=== PATIENT | female | born 1935 | race Caucasian/White ===

== ENCOUNTER 2016-06-13 22:40 | Inpatient (IN) | payer OTHER ==
--- NOTE | ~2016-06-13 | HP ---
History And Physical [facility] [address] [place]. [address] NAME: SAMAN NOLASCO : 35 STATUS : ADM Crow PAT#: [id number] AGE: 80 ADM/REG DATE : 06/13/16 MR#: [id number] REPORT SERV DATE: 06/14/16 DICTATED BY: TIM MUSTAFA DATE: 06/14/16 REPORT STATUS : Draft TRANSCRIBED BY: MODRoxane DATE: 06/14/16 DATE OF ADMISSION: 06/13/2016 CHIEF COMPLAINT: Fall at home, hip pain, and bleeding from the scalp. 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 History is obtained from the patient, her family who is at bedside, and reviewing data available on the apprupt system. Ms. Nolasco is an 80-year-old very pleasant lady, who was in her usual state of health at home when she got up from the couch to go to another room and unfortunately sustained a fall. She says there was no specific reason for the fall, but when she went down, she hit her head against the fireplace and sustained a gash in her scalp. This was bleeding. Unfortunately after the fall, she started experiencing sudden onset of pain in her hip region, although she cannot localize it, but was unable to stand up or bear weight with either of her legs. She scooted around trying to find a phone and was finally able to call one of her family members, her daughter, who came over and then got help and subsequently, the patient was brought here to the emergency room. In the emergency room, she had a scalp laceration which was addressed by the ER providers with megan, and initial workup revealed she had a fracture of the pelvis. She also was hypotensive with blood systolic blood pressures in the low 90s, but was quite asymptomatic here. Hospitalist Service is asked to admit her for further evaluation and treatment. At the time of my evaluation, she denied any chest pain, palpitations, or orthopnea. She had no cough recently. Denied any hemoptysis, night sweats, or weight loss. She did have a fall as mentioned above, but without any loss of consciousness. No history of recent fevers, chills, nausea, vomiting, diarrhea, hematemesis, hematochezia, or hematuria. No other history of recent travel or exposures other than those mentioned above. 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 She has had hysterectomy and breast and hip surgeries in the past as well. SOCIAL HISTORY: She does not smoke, drink, or use recreational drugs. FAMILY HISTORY: Noncontributory. MEDICATIONS: Her medications at home were reviewed by me in the chart today and reordered by me. REVIEW OF SYSTEMS: As in history of present illness. All other systems were reviewed in detail and are quite unremarkable. History And Physical [address] [place]. [address] NAME: SAMAN NOLASCO : 35 STATUS : ADM Crow PAT#: [id number] AGE: 80 ADM/REG DATE : 06/13/16 MR#: [id number] REPORT SERV DATE: 06/14/16 DICTATED BY: TIM MUSTAFA DATE: 06/14/16 REPORT STATUS : Draft TRANSCRIBED BY: ERNIE DATE: 06/14/16 PHYSICAL EXAMINATION: GENERAL: This is a pleasant 80-year-old, not in any acute distress. HEENT: Her head is atraumatic, normocephalic. She is alert, awake, oriented to time, place, and person. Pupils are equal, reacting to light and accommodating. External ocular muscles are intact. Membranes are moist and pink. Sclerae are nonicteric. NECK: Supple with no jugular venous distention, lymphadenopathy, or thyromegaly. SKIN: Jaundiced. LUNGS: Clear to auscultation with no wheezes, rubs, or crackles. HEART: Heart sounds were regular with no murmurs, rubs, or gallops. ABDOMEN: Soft, nontender. Bowel sounds are present. EXTREMITIES: Showed no cyanosis, clubbing, or edema. NEUROLOGIC: Grossly intact. No focal sensory or motor deficits. There was no asterixis. VITAL SIGNS: Today showed a temperature of 98.2, pulse 63, respirations 21 a minute, blood pressure was 95/51 upon arrival. Oxygen saturations were 93% on room air. LABORATORY DATA: Reviewed on the apprupt system showed a sodium of 144, potassium was 3.2, chloride 106, and CO2 was 27. BUN was 8 with a creatinine of 0.81 and blood sugar was 120. Total bilirubin today was 2.7, which has been better than in the past. Her alkaline phosphatase was 164. Her ALT and AST were within normal limits. Ammonia was 12 today and CBC showed a white blood cell count of 6800, hemoglobin was 11.9, hematocrit 35.1. Her MCV was 98.9 and platelet count was down to 84,000. Urinalysis was not done today. Films of the CT scan of the brain and plain x-ray of the hip and pelvis were all reviewed by me on the PACS today. The CT of the brain did not reveal any acute intracranial pathology. Hip film showed acute fracture of the pelvis. IMPRESSION: 1. Fall. 2. Pelvic fracture. 3. Scalp laceration. 4. Hypotension. 5. Thrombocytopenia. 6. Gastroesophageal reflux disease. 7. Cryptogenic cirrhosis of the liver with varices, stable at this time. PLAN: We will admit Mrs. Nolasco to the Hospitalist Service with telemetry for a 24-hour observation period. We will start her on IV fluids for volume resuscitation and follow closely. We will get a random cortisol level now, and also get blood and urine cultures as well. Her scalp laceration was addressed in the emergency room by the ER provider with megan. We will get Social Work to evaluate her for rehabilitation placement. We will continue all other medications and treatments at this time, provide pain control for the hip fracture as well. She will be on SCDs for DVT prophylaxis given her thrombocytopenia. Please see today's orders for all the details. I have discussed the above plans with the patient and her family. Questions were answered and they are agreeable to the above recommendations. Hospitalist Service will be following her during her stay here. History And Physical [address] [place]. [address] NAME: SAMAN NOLASCO : 35 STATUS : ADM Crow PAT#: [id number] AGE: 80 ADM/REG DATE : 06/13/16 MR#: [id number] REPORT SERV DATE: 06/14/16 DICTATED BY: TIM MUSTAFA DATE: 06/14/16 REPORT STATUS : Draft TRANSCRIBED BY: MODRoxane DATE: 06/14/16 MR/MODL Tim Mustafa M.D. / [id number] CC: Israel Agarwal M.D.
--- NOTE | ~2016-06-13 | DS ---
Discharge Summary [facility] [address] [place]. [address] NAME: SAMAN BOND : 35 STATUS : DIS Crow PAT#: [id number] AGE: 80 ADM/REG DATE : 06/13/16 MR#: [id number] REPORT SERV DATE: 06/20/16 DICTATED BY: PIYUSH DO DATE: 06/19/16 REPORT STATUS : Draft TRANSCRIBED BY: MODRoxane DATE: 06/19/16 ADMISSION DATE: 06/13/2016 DISCHARGE DATE: 06/19/2016 DISCHARGE DIAGNOSES: 1. Acute pelvic fractures due to fall. 2. Cryptogenic cirrhosis with history of ascites, encephalopathy, esophageal varices, prolonged INR, thrombocytopenia with a MELD score of 15. 3. Low vitamin D. 4. Gastroesophageal reflux disease. 5. Mild systolic congestive heart failure. HISTORY: The patient tripped, fell. No loss of consciousness. Had pain in her left pelvis, could not get up, crawled to where the phone was, got help, was brought to the emergency room. X-ray showed fracture of the superior and inferior pubic rami on the left side. No evidence of hip fracture. 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 Because of the pain, she was not able to bear weight independently. She was in observation status, seen by Physical Therapy and recommended for rehab. She has a history of cryptogenic cirrhosis. She had a liver biopsy at [place]. Family thinks she may have had fatty liver. She is followed longitudinally by GI, Dr. Cash Mendenhall. She has had previous ascites, previous esophageal varices. She has a thrombocytopenia and currently, her platelet count is 84,000. Her INR is currently 2.0. She has had a history of previous hepatic encephalopathy for which she takes lactulose 30 mL b.i.d. regularly plus extra doses if she is not having enough bowel movements. Her current MELD score is 15. Her total bilirubin is 2.7. Because of her age and fall, we did do a vitamin D level. It came back low at 14. So we supplemented her on 1000 units daily. The patient on chest x-ray has bilateral pleural effusions and some cardiomegaly. The radiologist stated that this was stable compared to her chest x-ray, 02/26/2016. The patient's echocardiogram on 02/28/2016 shows left atrial size, 3.9 cm, left ventricular ejection fraction normal at 60%. She had normal diastolic filling. She had aortic valve sclerosis, but no aortic stenosis. Therefore it is more likely that she really has pleural effusions due to her cirrhosis rather than heart failure itself. She is chronically on Lasix to help with volume control. DISCHARGE MEDICATIONS: 1. Amitriptyline 12.5 mg at bedtime, hold if sedated. This is a chronic medicine for her. 2. Os-Leo 500 mg daily. 3. Lactulose 30 mL p.o. twice a day, taking extra if she does not have enough bowel movements. 4. Corgard 40 mg daily to reduce portal hypertension. 5. Protonix 40 mg twice a day which is a chronic medicine. Discharge Summary [address] [place]. [address] NAME: SAMAN BOND : 35 STATUS : DIS Crow PAT#: [id number] AGE: 80 ADM/REG DATE : 06/13/16 MR#: [id number] REPORT SERV DATE: 06/20/16 DICTATED BY: PIYUSH DO DATE: 06/19/16 REPORT STATUS : Draft TRANSCRIBED BY: MODRoxane DATE: 06/19/16 6. Spironolactone 25 mg daily which is a chronic medicine for her. 7. Potassium currently is 4.2. 8. Furosemide 40 mg daily. 9. Artificial Tears p.r.n. 10.Vitamin D 1000 units daily. 11.Albumin infusions every [address] Cash MARIE, 25 g each time and her last dose was given today, 06/19/2016. 12.Ultram 25 mg q.i.d. p.r.n. pain. I spent 37 minutes today with the patient and with discharge plan. EDER/ERNIE Piyush Do M.D. / [id number] CC: Israel Agarwal, M.D. Julio César Larsen M.D., F.A.C.C. Jeffrey Mendenhall M.D. [facility]
--- NOTE | ~2016-06-13 | DS ---
Discharge Summary [facility] [address] [place]. [address] NAME: SAMAN BOND : 35 STATUS : ADM Crow PAT#: [id number] AGE: 80 ADM/REG DATE : 06/13/16 MR#: [id number] REPORT SERV DATE: 06/16/16 DICTATED BY: PIYUSH DO DATE: 06/15/16 REPORT STATUS : Draft TRANSCRIBED BY: MODL DATE: 06/15/16 ADMISSION DATE: 06/13/2016 DISCHARGE DATE: 06/15/2016 DISCHARGE DIAGNOSES: 1. Acute pelvic fractures due to fall. 2. Cryptogenic cirrhosis with history of ascites, encephalopathy, esophageal varices, prolonged INR, thrombocytopenia with MELD score of 15. 3. Low vitamin D. 4. Gastroesophageal reflux disease. HISTORY: This patient tripped and fell, no loss of consciousness, had pain in her left pelvis, could not get up, crawled to where her phone was, got help, was brought to the emergency room. X-ray showed fractures of the superior and inferior pubic rami on the left side. No evidence of hip fracture. 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 Because of the pain, she could not bear weight. She was kept in observation status. She was seen by Physical therapy. They recommended inpatient rehab, and we have requested this. She has a history of cryptogenic cirrhosis. She has had a liver biopsy previously in [place]. Family thinks maybe she has had fatty liver. She is followed up longitudinally by GI, Dr. Cash Mendenhall. She has had previous ascites, previous esophageal varices. She has had thrombocytopenia and currently her platelet count is 84,000. She also has prolonged INR of 2.0. She describes previous hepatic encephalopathy for which she is on lactulose 30 mL twice a day scheduled, and she will take 15 mL extra dose if she has not had a bowel movement. Her MELD score is currently calculated at 15 based on her INR of 2.0. Her total bilirubin of 2.7, and her serum creatinine 0.73. Because of her fall and age, we did do a vitamin D level. It came back low at 14, so the patient is being started on 1000 units of vitamin D daily. DISCHARGE MEDICATIONS: Amitriptyline 12.5 mg at bedtime, hold if sedated (chronic medicine for this patient); Os-Leo 500 mg daily; lactulose 30 mL scheduled twice a day, 15 mL extra dose if she does not have a bowel movement; Coreg 40 mg daily to reduce portal hypertension; Protonix 40 mg twice a day, which is a chronic medicine; spironolactone 25 mg daily (she has currently no signs of peripheral edema and no palpable obvious ascites); furosemide 40 mg daily; Artificial Tears p.r.n., and vitamin D 1000 units daily. She gets an albumin infusion every [address] Cash Mendenhall. Ultram 25 mg q.i.d. p.r.n. pain. I spent 34 minutes today with the patient and with her family with discharge planning. EDER/ERNIE Discharge Summary [address] [address] NAME: SAMAN BOND : 35 STATUS : ADM Crow PAT#: [id number] AGE: 80 ADM/REG DATE : 06/13/16 MR#: [id number] REPORT SERV DATE: 06/16/16 DICTATED BY: PIYUSH DO DATE: 06/15/16 REPORT STATUS : Draft TRANSCRIBED BY: ERNIE DATE: 06/15/16 Piyush Do M.D. / [id number] CC: Israel Agarwal M.D. Steven Stubblefield, M.D., F.A.C.C. Jeffrey Mendenhall M.D. [facility]
[~2016-06-13 22:40] MED LIST: ALBUMIN INF; ATV1 PO; CALTRA600D PO; CONSTULOSE PO; COR40 PO; L40 PO; PREV30 PO; PRILO PO; PRIN10 PO; PROTONIX PO; SPIRO25 PO; SUCR PO; ZANTAC150 MG PO
[2016-06-13] MEDS ORDERED: SPIRO25 PO (23:27)
[2016-06-13] MEDS ORDERED: AMIT25 PO (23:27)
[2016-06-13] MEDS ORDERED: L40 PO (23:27)
[2016-06-13] MEDS ORDERED: CONSTULOSE PO (23:28)
[2016-06-13] MEDS ORDERED: OS500+D PO (23:28)
[2016-06-13] MEDS ORDERED: PROTONIX PO (23:28)
[2016-06-13] MEDS ORDERED: COR40 PO (23:28)
[2016-06-13] MEDS ORDERED: BION TEARS OPH (23:29)
[2016-06-13 23:46] LABS: BASOPHILS 0.1 %; BASOPHILS ABSOLUTE 0.01 10/3/uL (0.0-0.16); EOSINOPHILS 0.4 %; EOSINOPHILS ABSOLUTE 0.03 10/3/uL (0.0-0.53); ER CBC TAT 0 Hrs 04 MinsNP; HEMATOCRIT 35.1 % (36.0-48.0); HEMOGLOBIN 11.9 g/dL (12.0-16.0); IMMATURE GRANULOCYTES 0.4 %; IMMATURE GRANULOCYTES ABSOLUTE 0.03 10/3/uL (0.0-0.11); LYMPHOCYTES 8.1 %; LYMPHOCYTES ABSOLUTE 0.55 10/3/uL (0.67-4.30); MANUAL DIFF NO %; MEAN CORPUS HGB CONC 33.9 g/dL (32.0-36.0); MEAN CORPUSCULAR HEMOGLOB 33.5 pg (26.0-34.0); MEAN CORPUSCULAR VOLUME 98.9 fL (80-100); MEAN PLATELET VOLUME 9.8 fL (9.2-13.0); MONOCYTES 9.2 %; MONOCYTES ABSOLUTE 0.63 10/3/uL (0.21-1.20); NEUTROPHILS 81.8 %; NEUTROPHILS ABSOLUTE 5.57 10/3/uL (2.02-8.40); PLATELET COUNT 84 10/3/uL (150-400); RBC DISTRIBUTION WIDTH 14.2 % (12.0-16.0); RED CELL COUNT 3.55 10/6/uL (4.0-5.6); WHITE BLOOD CELLS 6.8 10/3/uL (4.5-10.5)
[2016-06-13 23:57] LABS: PROTIME (NOT ORD) 22.4 SEC (12.0-14.5)
[2016-06-14 00:11] LABS: A/G RATIO 1.1 (0.7-1.9); ALBUMIN 3.2 G/DL (3.5-5.0); BUN (BLOOD UREA NITROGEN) 8 MG/DL (6-23); CALCIUM, SERUM 8.4 MG/DL (8.5-10.4); CHLORIDE, SERUM 106 MMOL/L (96-112); CO2 (CARBON DIOXIDE) 27 MMOL/L (24-34); CREATININE 0.81 MG/DL (0.55-1.02); GFR AFRICAN AMERICAN 80 ML/MIN (>=60); GFR NON AFRICAN AMERICAN 69 ML/MIN (>=60); GLOBULIN 2.8 G/DL (2.5-4.1); SGOT(AST) 36 U/L (5-40); SGPT(ALT) 28 U/L (5-65); SODIUM, SERUM 144 MMOL/L (135-148)
[2016-06-14 00:12] LABS: ALKALINE PHOSPHATASE 164 U/L (45-117); GLUCOSE, SERUM 120 MG/DL (60-99); POTASSIUM, SERUM 3.2 MMOL/L (3.5-5.3); TOTAL BILIRUBIN 2.7 MG/DL (0-1.2)
[2016-06-14 06:38] LABS: BUN (BLOOD UREA NITROGEN) 9 MG/DL (6-23); CALCIUM, SERUM 8.5 MG/DL (8.5-10.4); CHLORIDE, SERUM 105 MMOL/L (96-112); CO2 (CARBON DIOXIDE) 27 MMOL/L (24-34); CREATININE 0.73 MG/DL (0.55-1.02); GFR AFRICAN AMERICAN 90 ML/MIN (>=60); GFR NON AFRICAN AMERICAN 78 ML/MIN (>=60); GLUCOSE, SERUM 106 MG/DL (60-99); PHOSPHORUS, SERUM 2.3 MG/DL (2.5-4.5); POTASSIUM, SERUM 3.1 MMOL/L (3.5-5.3); SODIUM, SERUM 144 MMOL/L (135-148)
[2016-06-14 07:17] LABS: PROCALCITONIN 0.08 ng/mL (<0.5)
[2016-06-14 08:27] LABS: ASCORBIC ACID (UR NOT ORDER) 20 (NEG); BILIRUBIN, URINE NEGATIVE (NEG); KETONE, URINE NEGATIVE (NEG); LEUKOCYTE ESTERASE(NOT OR SMALL (NEG); WBC (NOT ORDERED) (RFLEX) 5 (0-5)
[2016-06-14 17:36] LABS: POTASSIUM, SERUM 4.1 MMOL/L (3.5-5.3)
[2016-06-14 18:04] LABS: TROPONIN I <0.02 NG/ML (<0.05)
[2016-06-15 07:13] LABS: PHOSPHORUS, SERUM 2.8 MG/DL (2.5-4.5)
[2016-06-16 08:10] LABS: BASOPHILS 0.1 %; BASOPHILS ABSOLUTE 0.01 10/3/uL (0.0-0.16); EOSINOPHILS 1.2 %; EOSINOPHILS ABSOLUTE 0.09 10/3/uL (0.0-0.53); HEMOGLOBIN 10.8 g/dL (12.0-16.0); IMMATURE GRANULOCYTES 0.3 %; IMMATURE GRANULOCYTES ABSOLUTE 0.02 10/3/uL (0.0-0.11); LYMPHOCYTES 10.7 %; LYMPHOCYTES ABSOLUTE 0.77 10/3/uL (0.67-4.30); MEAN CORPUS HGB CONC 34.6 g/dL (32.0-36.0); MEAN CORPUSCULAR HEMOGLOB 34.8 pg (26.0-34.0); MEAN CORPUSCULAR VOLUME 100.6 fL (80-100); MEAN PLATELET VOLUME 10.2 fL (9.2-13.0); MONOCYTES 11.1 %; NEUTROPHILS 76.6 %; NEUTROPHILS ABSOLUTE 5.52 10/3/uL (2.02-8.40); PLATELET COUNT 70 10/3/uL (150-400); RBC DISTRIBUTION WIDTH 14.2 % (12.0-16.0); WHITE BLOOD CELLS 7.2 10/3/uL (4.5-10.5)
[2016-06-16 08:16] LABS: HEMATOCRIT 31.2 % (36.0-48.0); MANUAL DIFF NO %
[2016-06-16 08:32] LABS: BUN (BLOOD UREA NITROGEN) 9 MG/DL (6-23); CALCIUM, SERUM 8.2 MG/DL (8.5-10.4); CHLORIDE, SERUM 106 MMOL/L (96-112); CO2 (CARBON DIOXIDE) 25 MMOL/L (24-34); CREATININE 0.68 MG/DL (0.55-1.02); GFR AFRICAN AMERICAN 96 ML/MIN (>=60); GFR NON AFRICAN AMERICAN 83 ML/MIN (>=60); GLUCOSE, SERUM 98 MG/DL (60-99); POTASSIUM, SERUM 4.2 MMOL/L (3.5-5.3); SODIUM, SERUM 142 MMOL/L (135-148)
[2016-06-16 08:41] LABS: OVALOCYTES 1+ (3-10/OIF) (0-2/OIF); PLATELET ESTIMATE DEC (ADEQUATE)
== END 2016-06-19 18:22 | DRG 536 ==
LOC: ER 22:40 → 1SO 23:59
PROVIDERS: Hospitalist; Internal Medicine Pulmonary Disease; Nurse Practitioner Acute Care
PROC: 0HQ0XZZ Repair Scalp Skin, External Approach (ICD-10-PCS; principal; 2016-06-13)
DX: S32.592A Other specified fracture of left pubis, initial encounter for closed fracture (principal); I50.32 Chronic diastolic (congestive) heart failure; I95.9 Hypotension, unspecified; D69.6 Thrombocytopenia, unspecified; K74.69 Other cirrhosis of liver; S01.01XA Laceration without foreign body of scalp, initial encounter; K21.9 Gastro-esophageal reflux disease without esophagitis; W18.30XA Fall on same level, unspecified, initial encounter; Z79.899 Other long term (current) drug therapy; Z88.0 Allergy status to penicillin; Z88.2 Allergy status to sulfonamides; Z88.8 Allergy status to other drugs, medicaments and biological substances
CPT/HCPCS: 70450; 71010; 73502-LT; 80048; 80053; 81001; 82140; 82306; 82533; 83735; 84100; 84132; 84145; 84484; 85025; 85610; 85730; 87040; 87086; 93005; 97110-GP; 97116-GP; 97162-GP; 97530-GP; 99285; A9270-GY; J1170; J2405; P9047

== ENCOUNTER 2016-07-14 07:00 | Inpatient (IN) | payer OTHER ==
--- NOTE | ~2016-07-14 | CN ---
Consultation Report [facility] [address] [place]. [address] NAME: SAMAN NOLASCO : 35 STATUS : ADM IN PAT#: [id number] AGE: 80 ADM/REG DATE : 07/14/16 MR#: [id number] REPORT SERV DATE: 07/21/16 DICTATED BY: CHELSEA HERNANDEZ DATE: 07/21/16 REPORT STATUS : Draft TRANSCRIBED BY: ERNIE DATE: 07/21/16 DATE OF CONSULTATION: 07/21/2016 REASON FOR CONSULTATION: Evaluation and management of hepatic encephalopathy. HISTORY OF PRESENT ILLNESS: Ms. Nolasco is an 80-year-old female patient, known to Dr. Andrew Mendenhall in the outpatient setting, who presented to [facility] on 07/14/2016 status post fall with left pneumothorax and multiple rib fractures. She underwent on 07/14/2016 a right tube thoracostomy with Dr. Benitez. She has a right chest tube at this time. She has a known history of cirrhosis of the liver as well as hepatic encephalopathy. She had been doing well up until the last two days when per the family she had become increasingly more somnolent, difficulty staying awake, difficulty swallowing. Her ammonia level today was found to be 281. They tried to administer a lactulose enema overnight, however, met difficulty secondary to bleeding from her rectum. Her platelet count is 197. Her hemoglobin is stable. Her ammonia level is 281. I had a long discussion with the family. We will plan on starting her on an octreotide drip as she has known esophageal varices, have them place a Dobbhoff tube at [facility] and then begin lactulose pretty aggressively to bring her ammonia levels down. We also will check her LFTs to monitor any worsening of her liver function. This was all discussed with the family and they are in agreement. PAST MEDICAL HISTORY: Cryptogenic cirrhosis, ascites, encephalopathy, varices, thrombocytopenia, last MELD score is calculated at 15, GERD, acute pelvic fractures, she takes scheduled albumin every two weeks for her ascites with good control, she has reflux, portal hypertension, iron deficiency anemia, osteoporosis, and anxiety. PAST SURGICAL HISTORY: Hysterectomy, tonsillectomy, cataract surgery, recent right chest tube. FAMILY HISTORY: Noncontributory from a GI standpoint. ALLERGIES: LISTED TO NAPROXEN, SULFADIAZINE, PENICILLIN, STADOL, IRON, MORPHINE, CODEINE, HYDROCODONE, AND ACETAMINOPHEN. HOME MEDICATIONS: Elavil, artificial tears, Dulcolax, Os-Leo, vitamin D, Lasix, lactulose, milk of magnesia, Corgard, Protonix, Aldactone, and Ultram. REVIEW OF SYSTEMS: Not able to be obtained secondary to the patient's somnolent status. PHYSICAL EXAMINATION: VITAL SIGNS: Temperature 96.8, pulse 76, respirations 18, and blood pressure 89/55. NEURO: Reveals a somnolent female, resting in bed. GENERAL: She is in no obvious acute distress, not able to be awakened. She does move around to stimuli. Consultation Report [address] [place]. [address] NAME: SAMAN NOLASCO : 35 STATUS : ADM IN [facility]#: [id number] AGE: 80 ADM/REG DATE : 07/14/16 MR#: [id number] REPORT SERV DATE: 07/21/16 DICTATED BY: CHELSEA HERNANDEZ DATE: 07/21/16 REPORT STATUS : Draft TRANSCRIBED BY: ERNIE DATE: 07/21/16 NECK: No JVD. No palpable nodes. LUNGS: Coarse. She has a right chest tube. She has a positive dry cough. CARDIOVASCULAR: Regular rate and rhythm. ABDOMEN: Soft and nontender with no tense ascites. Hypoactive bowel sounds. No organomegaly. RECTAL: Done with nurse in the room showed non-thrombosed external hemorrhoids. Small amount of bright red blood in the rectal vault with no mass being palpated. No stool. PERTINENT LABORATORY DATA: Sodium 138, potassium 5.5, BUN is 28, creatinine 0.7. White count 17.2, hemoglobin 12.6, hematocrit 36.9, platelet count is 197, INR is 1.7. ASSESSMENT AND PLAN: 1. Hepatic encephalopathy, ammonia level 281, with altered mental status. 2. Status post left pneumothorax/hemothorax and multiple rib fractures, status post chest tube. 3. Cryptogenic cirrhosis. 4. Esophageal varices history. 5. Congestive heart failure. PLAN: 1. Dobbhoff tube at [facility]. This was discussed with Dr. Lowe as safest method regarding placement due to esophageal varices. 2. We will start lactulose after that. 3. We will begin octreotide drip to relieve any pressure in her varices. 4. We will monitor ammonia b.i.d. as well as her LFTs. 5. We will start Xifaxan and a PPI. 6. We will monitor status and follow along. SYD/ERNIE Chelsea TAY Palacios / [id number] CC: Israel Gonzales Jr., M.D.
--- NOTE | ~2016-07-14 | DS ---
Discharge Summary [facility] [address] [place]. [address] NAME: SAMAN BOND : 35 STATUS : DIS IN PAT#: [id number] AGE: 80 ADM/REG DATE : 07/14/16 MR#: [id number] REPORT SERV DATE: 08/02/16 DICTATED BY: SHAN BENITEZ JR. DATE: 08/01/16 REPORT STATUS : Draft TRANSCRIBED BY: ERNIE DATE: 08/01/16 Data Collection from hospitalization DISCHARGE DIAGNOSES: 1. Status post blunt trauma, left chest with multiple rib fractures and hemothorax, secondary to pneumothorax. 2. History of cirrhosis. 3. Gastroesophageal reflux disease. 4. Congestive heart failure. 5. Recent pelvic fracture. 6. Iron-deficiency anemia. 7. Gastroesophageal reflux disease. 8. Systolic congestive heart failure. 9. Osteoporosis. CONSULTATIONS: [facility]. PROCEDURES: 1. Right tube thoracostomy at 32-Turkmen, 07/14/2016. 2. CT scan of the chest without contrast and CT scan of the abdomen without contrast, 07/14/2016. 3. CT scan of the brain without contrast, 07/15/2016. 4. CT-guided placement of left chest pigtail catheter, 07/18/2016. 5. CT scan of the brain without contrast, 07/22/2016. DISCHARGE MEDICATIONS: Elavil 12.5 mg at bedtime, Os-Elo plus D 500 mg daily, vitamin D 1000 units daily, Lasix 40 mg daily, lactulose 30 mL every four hours as instructed, Corgard 40 mg at bedtime, Protonix 40 mg twice a day, Aldactone 25 mg daily, Artificial Tears one drop daily as needed, Zofran 4 mg IV every four hours as needed. CONDITION ON DISCHARGE: Stable. DISPOSITION: The patient was discharged to [facility]. HOSPITAL COURSE: This is an 80-year-old female who had recently been admitted in June of this year after a fall at which time, she was found to have a laceration in her scalp as well as pelvic fractures. She has a long-standing history of cryptogenic cirrhosis with ascites, encephalopathy, esophageal varices, and thrombocytopenia. After discharge, she was sent to [facility] for rehabilitation. At that time, she was found to have a decubitus ulcer on her buttocks. She was gradually getting stronger and then fell on the morning of this admission which resulted in a left pneumothorax and multiple rib fractures. She currently had nausea which she associated with pain medication as well as shortness of breath and soreness in her thorax. She was admitted to the hospital at this time for further evaluation and treatment. Upon admission, CT scan of the chest without contrast and CT scan of the abdomen without contrast was performed. She was evaluated by Physical Therapy. It was felt that she would need to undergo right tube thoracostomy. She was taken to the operating room where she Discharge Summary [address] [place]. [address] NAME: SAMAN BOND : 35 STATUS : DIS IN PAT#: [id number] AGE: 80 ADM/REG DATE : 07/14/16 MR#: [id number] REPORT SERV DATE: 08/02/16 DICTATED BY: SHAN BENITEZ JR. DATE: 08/01/16 REPORT STATUS : Draft TRANSCRIBED BY: ERNIE DATE: 08/01/16 underwent the above-mentioned procedure. She tolerated this well, and there were no complications. The following day CT scan of the brain without contrast was performed. No acute intracranial abnormality was identified at this time. The patient stated that she hit her head when she fell. She was evaluated by Physical Therapy. On 07/16/2016, she had no complaints but did have some confusion reported overnight. She had not had a bowel movement. Her dressings were clean, dry, and intact. Ammonia level was going to be checked. On 07/17/2016, she was very confused. Lactulose was increased. IV fluids were added. Chest tube was still in place. Chest x-ray showed increased left effusion. 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 Ammonia level decreased to 29. Later that day, she was more alert and conversant. She still had poor oral intake. On 07/18/2016, ammonia level was 34. O2 saturation was 96% on 1 L. The patient underwent CT-guided placement of left chest pigtail catheter. 900 mL of fluid was aspirated. This was sent for cultures and stains. The following day, her lungs were clear bilaterally. O2 saturation was 98% on room air. Ammonia level was now 16. On 07/20/2016, she had adequate urine output. Her lungs were clear. Abdomen was soft and nontender. White count was 11.4. Speech/Language Pathology performed a bedside swallow study. Aspiration precautions were in place. She was seen in consultation by [facility], regarding evaluation and management of hepatic encephalopathy. She has a known history of cirrhosis of the liver as well as hepatic encephalopathy. Over the past couple of days, she had become more somnolent and had difficulty staying awake and difficulty swallowing. Ammonia level increased to 281. Hemoglobin was stable. Platelet count was 197. It was felt that she would need to be started on an octreotide drip as she does have known esophageal varices. It was felt she would need a Dobhoff tube placed and then begin lactulose aggressively to bring her ammonia level down. Liver function tests will be checked to monitor for worsening of her liver function. Xifaxan and proton pump inhibitor was started. Dobhoff tube was placed. On 07/22/2016, she had no new complaints. She was much more alert and oriented. CT scan of the brain without contrast was performed. No acute intracranial abnormality was seen. Over the next couple of days, discharge planning was performed. Lactulose was increased. INR level was 1.9. On 07/24/2016, INR level was 1.9. Her wounds were clean, dry, and intact. Her family had decided on hospice care. Discharge instructions were given. Due to her stable condition, she was discharged to [facility] with the above- stated instructions. Information collected by: Magda Méndez I submit the above information as my discharge summary. TG/MODL Shan Benitez Jr., M.D. / [id number] CC: Israel Gonzales Jr., M.D. Discharge Summary [address] [address] NAME: SAMAN BOND : 35 STATUS : DIS IN PAT#: [id number] AGE: 80 ADM/REG DATE : 07/14/16 MR#: [id number] REPORT SERV DATE: 08/02/16 DICTATED BY: SHAN BENITEZ JR. DATE: 08/01/16 REPORT STATUS : Draft TRANSCRIBED BY: ERNIE DATE: 08/01/16 [facility]
--- NOTE | ~2016-07-14 | HP ---
History And Physical [place] [id number] [facility] [place]. [address] NAME: SAMAN BOND : 35 STATUS : ADM IN [facility]#: [id number] AGE: 80 ADM/REG DATE : 07/14/16 MR#: [id number] REPORT SERV DATE: 07/14/16 DICTATED BY: SHAN BENITEZ JR. DATE: 07/14/16 REPORT STATUS : Draft TRANSCRIBED BY: ERNIE DATE: 07/14/16 DATE OF ADMISSION: 07/14/2016 REASON FOR ADMISSION: Left pneumothorax and multiple rib fractures, status post fall. BRIEF HISTORY: This is an 80-year-old white female, who recently was admitted in June of this year after a fall at which time, she was noted to have a laceration in her scalp as well as pelvic fractures. She also has a longstanding history of cryptogenic cirrhosis with ascites, encephalopathy, esophageal varices, and thrombocytopenia. After discharge, she was sent to [facility] for rehabilitation. She was also noted to have, at that time, a decubitus ulcer on her buttocks. She was gradually getting stronger and fell again this morning, resulting in a left pneumothorax and multiple rib fractures. She currently has nausea which she associates with a pain medication as well as shortness of breath and soreness in her thorax. We were asked to admit her for management of her pneumothorax and rib fractures. PAST MEDICAL HISTORY: Significant for pelvic fracture last month, cryptogenic cirrhosis with history of ascites, encephalopathy, esophageal varices, thrombocytopenia, low vitamin D, gastroesophageal reflux disease, systolic congestive heart failure, sacral decubitus, osteoporosis, and iron-deficiency anemia. PAST SURGICAL HISTORY: Includes a hysterectomy, tonsillectomy, cataract surgery, breast, and hip surgeries. SOCIAL HISTORY: The patient has a very supportive family. She currently resides at [facility]. She is a nonsmoker, nondrinker. FAMILY HISTORY: Positive for coronary artery disease and CVA but not prematurely. ALLERGIES: TO MEDICATIONS INCLUDE STADOL, IRON, MORPHINE, CODEINE, AND HYDROCODONE ALL OF WHICH CAUSE NAUSEA AND VOMITING; TYLENOL SECONDARY TO HER LIVER DYSFUNCTION; NAPROXEN WHICH CAUSES HIVES; SULFADIAZINE CAUSES SWELLING; AND PENICILLIN G WHICH CAUSES WELTS. HOME MEDICATIONS: Include Aldactone 25 mg p.o. daily; Elavil 12.5 mg p.o. daily at bedtime; Lasix 40 mg p.o. daily; Corgard 40 mg p.o. daily at bedtime; lactulose 30 mL p.o. twice daily; Protonix 40 mg p.o. twice daily; Os-Leo plus D 500 mg tablet p.o. daily; vitamin D 1000 units p.o. daily; Artificial Tears 1 drop ophthalmic daily as needed for dry eyes; Dulcolax 10 mg suppository p.r.n. constipation; milk of magnesia 30 mL p.o. daily as needed for constipation; and Ultram 25 mg 4 times daily as needed for pain. REVIEW OF SYSTEMS: Significant for nausea, shortness of breath, and thoracic chest wall pain. A complete 12- point review of systems was done, all other systems negative except the above-mentioned pertinent positives in the history of present illness. PHYSICAL EXAMINATION: History And Physical [address] [address] NAME: SAMAN BOND : 35 STATUS : ADM IN [facility]#: [id number] AGE: 80 ADM/REG DATE : 07/14/16 MR#: [id number] REPORT SERV DATE: 07/14/16 DICTATED BY: SHAN BENITEZ JR. DATE: 07/14/16 REPORT STATUS : Draft TRANSCRIBED BY: ERNIE DATE: 07/14/16 GENERAL: 80-year-old white female, currently somewhat lethargic secondary to narcotics but otherwise appearing her stated age. HEAD, EARS, EYES, NOSE, AND THROAT: Normocephalic, atraumatic. Pupils equal, round, and reactive to light. Ears, nose, and throat without drainage, lesions, or exudates noted. NECK: Supple. No lymphadenopathy, JVD, or bruits noted. Trachea midline. No obvious goiter. CHEST: With symmetric bilateral movement. No obvious chest wall deformities noted. There is an indwelling right chest tube. CARDIOVASCULAR: Revealed a regular rate and rhythm with S1, S2. No gallop, murmur, or rub. LUNGS: With decreased breath sounds in the right chest and left clear. GASTROINTESTINAL: Abdomen is soft, nontender, and nondistended. Positive umbilical hernia. : The patient voids without difficulty. Otherwise, deferred. MUSCULOSKELETAL: With no significant bony abnormalities. Normal range of motion in all 4 extremities. NEUROLOGIC: Somewhat lethargic secondary to her current medications, otherwise answers all questions appropriately and moves all extremities x4. SKIN: Warm and dry with normal turgor. She does have a sacral decubitus. EXTREMITIES: Without clubbing, cyanosis, or edema. 2+ pulses bilaterally. PSYCHIATRIC: With normal mood and affect and pleasant and answers all questions appropriately. HEMATOLOGIC/LYMPHATIC: Without any obvious petechiae or ecchymosis noted. There is no supraclavicular, axillary, or cervical lymphadenopathy noted. DATA: Chest x-ray performed this morning shows right-sided multiple rib fractures with a small hydropneumothorax. Small shift over the midline suggesting possible tension. Labs dated 07/14/2016, showing a sodium 142, potassium 4.1, BUN 11, creatinine 0.74, glucose 123, white blood count 9.9, hemoglobin 12.4, hematocrit 35.9, and platelet 132. Right shoulder film showing right rib fractures, osteopenia but otherwise negative right shoulder. PROBLEM LIST: 1. Right pneumothorax, status post fall. 2. Right rib fractures, status post fall. 3. Cirrhosis of the liver. 4. Esophageal varices. 5. Gastroesophageal reflux disease. 6. Decubitus ulcer sacrum. 7. Chronic mild systolic heart failure. 8. Recent pelvic fracture, status post fall. IMPRESSION AND PLAN: An 80-year-old white female with a right pneumothorax under some amount of tension. She is currently in no distress and has a chest tube in place. She had multiple rib fractures which should heal in time on their own. She has not had a CT of the chest or abdomen. We will go ahead and ask them to perform this today. She may need further chest tubes placed but we will try to avoid any operations if at all possible given her cirrhosis history and her frail nature. She is seen routinely by Dr. Mendenhall of the GI service. We will ask them to make recommendations about her next albumin infusion. We will History And Physical [place] [address] [place] [address] NAME: SAMAN BOND : 35 STATUS : ADM IN [facility]#: [id number] AGE: 80 ADM/REG DATE : 07/14/16 MR#: [id number] REPORT SERV DATE: 07/14/16 DICTATED BY: SHAN BENITEZ JR. DATE: 07/14/16 REPORT STATUS : Draft TRANSCRIBED BY: ERNIE DATE: 07/14/16 admit her to the hospital and observe her at least for the next couple of days to rule out any further increase in the pneumothorax or increasing pleural effusion. I discussed this with her and her family in detail and they are in agreement with this plan. QUINTON/ERNIE Shan Benitez Jr., M.D. / [id number] CC: Israel Gonzales Jr., M.D.
--- NOTE | ~2016-07-14 | OP ---
Record Of Operation [facility] [address] [place]. [address] NAME: SAMAN BOND : 35 STATUS : ADM IN [facility]#: [id number] AGE: 80 ADM/REG DATE : 07/14/16 MR#: [id number] REPORT SERV DATE: 07/14/16 DICTATED BY: SHAN BEINTEZ JR. DATE: 07/14/16 REPORT STATUS : Draft TRANSCRIBED BY: ERNIE DATE: 07/14/16 DATE OF PROCEDURE: 07/14/2016 PREOPERATIVE DIAGNOSES: Status post blunt trauma, left chest with multiple rib fractures and hemothorax, secondary to pneumothorax, history of cirrhosis, gastroesophageal reflux disease, congestive heart failure, recent pelvic fracture. POSTOPERATIVE DIAGNOSES: Status post blunt trauma, left chest with multiple rib fractures and hemothorax, secondary to pneumothorax, history of cirrhosis, gastroesophageal reflux disease, congestive heart failure, recent pelvic fracture. NAME OF OPERATION: Right tube thoracostomy at 32-Qatari. SURGEON: Shan Benitez M.D. RESIDENT SURGEON: Julio César Motley M.D. ANESTHESIA: Kurt Blanc M.D. FINDINGS: The patient noted to have about 200 mL of blood that was evacuated from the chest cavity. There was also air that was returned upon entering the chest cavity. The patient tolerated the procedure well. Chest x-ray is pending. The previous chest tube placed in the emergency room had been dislodged and it was not in the chest. She had a persistent pneumothorax and hemothorax. DETAIL OF THE PROCEDURE: The patient was brought to the procedure room where under IV conscious sedation she was sedated. The right chest was prepped and draped in routine sterile fashion. A small incision was made overlying the lower intercostal space. A 32- Qatari chest tube was inserted without any difficulty. Blood and air were returned. It was connected to 20 cm of suction. The tube was secured with silk suture. A sterile dressing was applied. The procedure was terminated at this point. Chest x-ray is pending. The patient tolerated the procedure well. QUINTON/ERNIE Shan Benitez Jr., M.D. / [id number] CC: Shan Benitez Jr., M.D. Jenniffer Garcia M.D.
[~2016-07-14 07:00] MED LIST changes: +AMIT25 PO; +BION TEARS OPH; +OS500+D PO
[2016-07-14] MEDS ORDERED: VITAMIN D1000 UNI1 PO (08:34)
[2016-07-14] MEDS ORDERED: BISR PR (08:35)
[2016-07-14] MEDS ORDERED: TEARS PLUS OPH (08:35)
[2016-07-14] MEDS ORDERED: ULTRAM50 PO (08:36)
[2016-07-14] MEDS ORDERED: MOMUD PO (08:36)
[2016-07-14 09:29] LABS: BASOPHILS 0.2 %; BASOPHILS ABSOLUTE 0.02 10/3/uL (0.0-0.16); EOSINOPHILS 0.3 %; EOSINOPHILS ABSOLUTE 0.03 10/3/uL (0.0-0.53); ER CBC TAT 0 Hrs 05 Mins; HEMOGLOBIN 12.4 g/dL (12.0-16.0); IMMATURE GRANULOCYTES 0.4 %; IMMATURE GRANULOCYTES ABSOLUTE 0.04 10/3/uL (0.0-0.11); LYMPHOCYTES 6.8 %; LYMPHOCYTES ABSOLUTE 0.67 10/3/uL (0.67-4.30); MEAN CORPUS HGB CONC 34.5 g/dL (32.0-36.0); MEAN CORPUSCULAR HEMOGLOB 35.1 pg (26.0-34.0); MEAN CORPUSCULAR VOLUME 101.7 fL (80-100); MEAN PLATELET VOLUME 9.4 fL (9.2-13.0); MONOCYTES 9.5 %; MONOCYTES ABSOLUTE 0.94 10/3/uL (0.21-1.20); NEUTROPHILS 82.8 %; NEUTROPHILS ABSOLUTE 8.16 10/3/uL (2.02-8.40); RBC DISTRIBUTION WIDTH 14.3 % (12.0-16.0); RED CELL COUNT 3.53 10/6/uL (4.0-5.6); WHITE BLOOD CELLS 9.9 10/3/uL (4.5-10.5)
[2016-07-14 09:31] LABS: HEMATOCRIT 35.9 % (36.0-48.0); MANUAL DIFF NO %; PLATELET COUNT 132 10/3/uL (150-400)
[2016-07-14 09:44] LABS: BUN (BLOOD UREA NITROGEN) 11 MG/DL (6-23); CALCIUM, SERUM 8.9 MG/DL (8.5-10.4); CHLORIDE, SERUM 104 MMOL/L (96-112); CO2 (CARBON DIOXIDE) 28 MMOL/L (24-34); CREATININE 0.74 MG/DL (0.55-1.02); GFR AFRICAN AMERICAN 89 ML/MIN (>=60); GFR NON AFRICAN AMERICAN 77 ML/MIN (>=60); POTASSIUM, SERUM 4.1 MMOL/L (3.5-5.3); SODIUM, SERUM 142 MMOL/L (135-148)
[2016-07-14 09:46] LABS: GLUCOSE, SERUM 123 MG/DL (60-99)
[2016-07-15 05:35] LABS: BASOPHILS 0.1 %; BASOPHILS ABSOLUTE 0.01 10/3/uL (0.0-0.16); EOSINOPHILS 0 %; HEMATOCRIT 35.6 % (36.0-48.0); HEMOGLOBIN 11.9 g/dL (12.0-16.0); IMMATURE GRANULOCYTES 0.2 %; IMMATURE GRANULOCYTES ABSOLUTE 0.02 10/3/uL (0.0-0.11); LYMPHOCYTES 6.1 %; LYMPHOCYTES ABSOLUTE 0.56 10/3/uL (0.67-4.30); MEAN CORPUS HGB CONC 33.4 g/dL (32.0-36.0); MEAN CORPUSCULAR HEMOGLOB 34.5 pg (26.0-34.0); MEAN CORPUSCULAR VOLUME 103.2 fL (80-100); MEAN PLATELET VOLUME 9.9 fL (9.2-13.0); MONOCYTES 14.2 %; NEUTROPHILS 79.4 %; NEUTROPHILS ABSOLUTE 7.25 10/3/uL (2.02-8.40); PLATELET COUNT 104 10/3/uL (150-400); RBC DISTRIBUTION WIDTH 14.3 % (12.0-16.0); RED CELL COUNT 3.45 10/6/uL (4.0-5.6); WHITE BLOOD CELLS 9.1 10/3/uL (4.5-10.5)
[2016-07-15 05:36] LABS: MANUAL DIFF NO %
[2016-07-15 05:50] LABS: CALCIUM, SERUM 8.8 MG/DL (8.5-10.4); CHLORIDE, SERUM 105 MMOL/L (96-112); CO2 (CARBON DIOXIDE) 26 MMOL/L (24-34); GFR AFRICAN AMERICAN 95 ML/MIN (>=60); GFR NON AFRICAN AMERICAN 82 ML/MIN (>=60); GLUCOSE, SERUM 109 MG/DL (60-99); POTASSIUM, SERUM 4.2 MMOL/L (3.5-5.3); SODIUM, SERUM 140 MMOL/L (135-148)
[2016-07-15 05:51] LABS: BUN (BLOOD UREA NITROGEN) 19 MG/DL (6-23)
[2016-07-17 05:50] LABS: BASOPHILS 0.4 %; BASOPHILS ABSOLUTE 0.03 10/3/uL (0.0-0.16); EOSINOPHILS 2.4 %; HEMATOCRIT 35.3 % (36.0-48.0); HEMOGLOBIN 11.9 g/dL (12.0-16.0); IMMATURE GRANULOCYTES 0.4 %; IMMATURE GRANULOCYTES ABSOLUTE 0.03 10/3/uL (0.0-0.11); LYMPHOCYTES 9.7 %; LYMPHOCYTES ABSOLUTE 0.82 10/3/uL (0.67-4.30); MEAN CORPUS HGB CONC 33.7 g/dL (32.0-36.0); MEAN CORPUSCULAR HEMOGLOB 34.4 pg (26.0-34.0); MEAN PLATELET VOLUME 9.9 fL (9.2-13.0); MONOCYTES ABSOLUTE 1.27 10/3/uL (0.21-1.20); NEUTROPHILS 72.1 %; PLATELET COUNT 95 10/3/uL (150-400); RBC DISTRIBUTION WIDTH 13.9 % (12.0-16.0); RED CELL COUNT 3.46 10/6/uL (4.0-5.6); WHITE BLOOD CELLS 8.5 10/3/uL (4.5-10.5)
[2016-07-17 05:52] LABS: MANUAL DIFF NO %
[2016-07-17 05:57] LABS: BUN (BLOOD UREA NITROGEN) 21 MG/DL (6-23); CALCIUM, SERUM 9.1 MG/DL (8.5-10.4); CHLORIDE, SERUM 102 MMOL/L (96-112); CO2 (CARBON DIOXIDE) 30 MMOL/L (24-34); CREATININE 0.67 MG/DL (0.55-1.02); GFR AFRICAN AMERICAN 96 ML/MIN (>=60); GFR NON AFRICAN AMERICAN 83 ML/MIN (>=60); GLUCOSE, SERUM 107 MG/DL (60-99); POTASSIUM, SERUM 4.3 MMOL/L (3.5-5.3); SODIUM, SERUM 141 MMOL/L (135-148)
[2016-07-18 05:35] LABS: INTERNATIONAL NORMAL RATI 1.7 UNITS (-); PROTIME (NOT ORD) 19.6 SEC (12.0-14.5)
[2016-07-18 05:44] LABS: BUN (BLOOD UREA NITROGEN) 20 MG/DL (6-23); CALCIUM, SERUM 8.9 MG/DL (8.5-10.4); CHLORIDE, SERUM 104 MMOL/L (96-112); CO2 (CARBON DIOXIDE) 27 MMOL/L (24-34); CREATININE 0.74 MG/DL (0.55-1.02); GFR AFRICAN AMERICAN 89 ML/MIN (>=60); GFR NON AFRICAN AMERICAN 77 ML/MIN (>=60); GLUCOSE, SERUM 115 MG/DL (60-99); POTASSIUM, SERUM 4.1 MMOL/L (3.5-5.3); SODIUM, SERUM 139 MMOL/L (135-148)
[2016-07-18 05:47] LABS: BASOPHILS 0.2 %; BASOPHILS ABSOLUTE 0.03 10/3/uL (0.0-0.16); EOSINOPHILS 2.2 %; EOSINOPHILS ABSOLUTE 0.29 10/3/uL (0.0-0.53); HEMATOCRIT 37.3 % (36.0-48.0); HEMOGLOBIN 12.5 g/dL (12.0-16.0); IMMATURE GRANULOCYTES 0.2 %; IMMATURE GRANULOCYTES ABSOLUTE 0.03 10/3/uL (0.0-0.11); LYMPHOCYTES 6.1 %; LYMPHOCYTES ABSOLUTE 0.81 10/3/uL (0.67-4.30); MEAN CORPUS HGB CONC 33.5 g/dL (32.0-36.0); MEAN CORPUSCULAR HEMOGLOB 34.2 pg (26.0-34.0); MEAN CORPUSCULAR VOLUME 101.9 fL (80-100); MEAN PLATELET VOLUME 9.6 fL (9.2-13.0); MONOCYTES 12.9 %; NEUTROPHILS 78.4 %; NEUTROPHILS ABSOLUTE 10.34 10/3/uL (2.02-8.40); PLATELET COUNT 102 10/3/uL (150-400); RED CELL COUNT 3.66 10/6/uL (4.0-5.6)
[2016-07-18 05:53] LABS: MANUAL DIFF NO %; WHITE BLOOD CELLS 13.2 10/3/uL (4.5-10.5)
[2016-07-18 21:59] LABS: HEMOGLOBIN 12.8 g/dL (12.0-16.0)
[2016-07-19 06:49] LABS: BASOPHILS 0.1 %; BASOPHILS ABSOLUTE 0.01 10/3/uL (0.0-0.16); EOSINOPHILS 1.8 %; HEMATOCRIT 36.8 % (36.0-48.0); HEMOGLOBIN 12.5 g/dL (12.0-16.0); IMMATURE GRANULOCYTES 0.4 %; IMMATURE GRANULOCYTES ABSOLUTE 0.05 10/3/uL (0.0-0.11); LYMPHOCYTES 6.1 %; LYMPHOCYTES ABSOLUTE 0.69 10/3/uL (0.67-4.30); MANUAL DIFF NO %; MEAN CORPUSCULAR HEMOGLOB 33.8 pg (26.0-34.0); MEAN CORPUSCULAR VOLUME 99.5 fL (80-100); MEAN PLATELET VOLUME 9.6 fL (9.2-13.0); MONOCYTES 11.4 %; NEUTROPHILS 80.2 %; NEUTROPHILS ABSOLUTE 9.15 10/3/uL (2.02-8.40); PLATELET COUNT 119 10/3/uL (150-400); WHITE BLOOD CELLS 11.4 10/3/uL (4.5-10.5)
[2016-07-19 07:03] LABS: CALCIUM, SERUM 9.1 MG/DL (8.5-10.4); CHLORIDE, SERUM 103 MMOL/L (96-112); CO2 (CARBON DIOXIDE) 28 MMOL/L (24-34); CREATININE 0.75 MG/DL (0.55-1.02); GFR AFRICAN AMERICAN 87 ML/MIN (>=60); GFR NON AFRICAN AMERICAN 75 ML/MIN (>=60); GLUCOSE, SERUM 110 MG/DL (60-99); POTASSIUM, SERUM 4.5 MMOL/L (3.5-5.3); SODIUM, SERUM 140 MMOL/L (135-148)
[2016-07-19 07:04] LABS: BUN (BLOOD UREA NITROGEN) 26 MG/DL (6-23)
[2016-07-21 01:09] LABS: HEMATOCRIT 36.8 % (36.0-48.0); HEMOGLOBIN 12.9 g/dL (12.0-16.0); MEAN CORPUS HGB CONC 35.1 g/dL (32.0-36.0); MEAN CORPUSCULAR HEMOGLOB 34.6 pg (26.0-34.0); MEAN CORPUSCULAR VOLUME 98.7 fL (80-100); MEAN PLATELET VOLUME 9.8 fL (9.2-13.0); RBC DISTRIBUTION WIDTH 14.1 % (12.0-16.0); RED CELL COUNT 3.73 10/6/uL (4.0-5.6); WHITE BLOOD CELLS 15.3 10/3/uL (4.5-10.5)
[2016-07-21 01:12] LABS: PLATELET COUNT 191 10/3/uL (150-400)
[2016-07-21 01:13] LABS: MANUAL DIFF YES %
[2016-07-21 01:29] LABS: EOSINOPHILS 1 %; EOSINOPHILS ABSOLUTE (CALC) 0.15 10/3/uL (0.0-0.53); LYMPHOCYTES 2 %; LYMPHOCYTES ABSOLUTE (CALC) 0.31 10/3/uL (0.67-4.30); MONOCYTES 11 %; MONOCYTES ABSOLUTE (CALC) 1.68 10/3/uL (0.21-1.20); NEUTROPHILS ABSOLUTE (CALC) 13.16 10/3/uL (2.02-8.40); PLATELET ESTIMATE ADQ (ADEQUATE); RBC MORPHOLOGY NORM (NORMAL); SEGMENTED NEUTROPHIL (0) 86 %; TOTAL NUCLEATED CELLS 100
[2016-07-21 06:58] LABS: BUN (BLOOD UREA NITROGEN) 28 MG/DL (6-23); CALCIUM, SERUM 9.4 MG/DL (8.5-10.4); CHLORIDE, SERUM 106 MMOL/L (96-112); GFR AFRICAN AMERICAN 95 ML/MIN (>=60); GFR NON AFRICAN AMERICAN 82 ML/MIN (>=60); GLUCOSE, SERUM 131 MG/DL (60-99); SODIUM, SERUM 138 MMOL/L (135-148)
[2016-07-21 07:00] LABS: CO2 (CARBON DIOXIDE) 23 MMOL/L (24-34); POTASSIUM, SERUM 5.5 MMOL/L (3.5-5.3)
[2016-07-21 07:12] LABS: HEMATOCRIT 36.9 % (36.0-48.0); HEMOGLOBIN 12.6 g/dL (12.0-16.0); MEAN CORPUS HGB CONC 34.1 g/dL (32.0-36.0); MEAN CORPUSCULAR HEMOGLOB 34.1 pg (26.0-34.0); PLATELET COUNT 197 10/3/uL (150-400); RBC DISTRIBUTION WIDTH 14.2 % (12.0-16.0); RED CELL COUNT 3.69 10/6/uL (4.0-5.6); WHITE BLOOD CELLS 17.2 10/3/uL (4.5-10.5)
[2016-07-21 07:13] LABS: MANUAL DIFF YES %
[2016-07-21 07:32] LABS: BAND NEUTROPHILS 8 %; BURR CELLS 1+ (3-10/OIF) (0-2/OIF); LYMPHOCYTES 6 %; LYMPHOCYTES ABSOLUTE (CALC) 1.03 10/3/uL (0.67-4.30); MACROCYTES 1+ (5-10/OIF) (0-5/OIF); MONOCYTES 12 %; MONOCYTES ABSOLUTE (CALC) 2.06 10/3/uL (0.21-1.20); PLATELET ESTIMATE ADQ (ADEQUATE); POLYCHROMASIA 1+ (2-5/OIF) (0-1/OIF); SEGMENTED NEUTROPHIL (0) 74 %; TOTAL NUCLEATED CELLS 100
[2016-07-21 11:56] LABS: HEMATOCRIT 36.6 % (36.0-48.0); HEMOGLOBIN 12.7 g/dL (12.0-16.0)
[2016-07-21 12:07] LABS: DIRECT BILIRUBIN 0.9 MG/DL (0.0-0.4); TOTAL PROTEIN 5.4 G/DL (6.0-8.5)
[2016-07-21 12:08] LABS: ALBUMIN 2.5 G/DL (3.5-5.0); INDIRECT BILIRUBIN(NOT ORDER) 3.1 MG/DL (0.1-0.9)
[2016-07-21 15:42] LABS: BASOPHILS 0.1 %; BASOPHILS ABSOLUTE 0.02 10/3/uL (0.0-0.16); EOSINOPHILS 0.2 %; EOSINOPHILS ABSOLUTE 0.03 10/3/uL (0.0-0.53); IMMATURE GRANULOCYTES 0.9 %; IMMATURE GRANULOCYTES ABSOLUTE 0.16 10/3/uL (0.0-0.11); LYMPHOCYTES ABSOLUTE 1.37 10/3/uL (0.67-4.30); MEAN CORPUSCULAR HEMOGLOB 34.3 pg (26.0-34.0); MEAN CORPUSCULAR VOLUME 98.1 fL (80-100); MEAN PLATELET VOLUME 10.2 fL (9.2-13.0); MONOCYTES 9.4 %; MONOCYTES ABSOLUTE 1.61 10/3/uL (0.21-1.20); NEUTROPHILS 81.4 %; WHITE BLOOD CELLS 17.2 10/3/uL (4.5-10.5)
[2016-07-21 15:44] LABS: MANUAL DIFF NO %; PLATELET COUNT 131 10/3/uL (150-400)
[2016-07-21 23:10] LABS: HEMATOCRIT 36.7 % (36.0-48.0); HEMOGLOBIN 12.3 g/dL (12.0-16.0)
[2016-07-22 08:08] LABS: INTERNATIONAL NORMAL RATI 1.8 UNITS (-); PROTIME (NOT ORD) 20.9 SEC (12.0-14.5)
[2016-07-22 10:56] LABS: ALBUMIN 2.6 G/DL (3.5-5.0); INDIRECT BILIRUBIN(NOT ORDER) 2.6 MG/DL (0.1-0.9); TOTAL BILIRUBIN 4.1 MG/DL (0-1.2); TOTAL PROTEIN 5.4 G/DL (6.0-8.5)
[2016-07-22 10:57] LABS: DIRECT BILIRUBIN 1.5 MG/DL (0.0-0.4)
[2016-07-23 06:21] LABS: INTERNATIONAL NORMAL RATI 1.9 UNITS (-); PROTIME (NOT ORD) 21.8 SEC (12.0-14.5)
[2016-07-23 11:09] LABS: ALBUMIN 2.3 G/DL (3.5-5.0); TOTAL PROTEIN 5.2 G/DL (6.0-8.5)
[2016-07-23 11:10] LABS: DIRECT BILIRUBIN 0.9 MG/DL (0.0-0.4); INDIRECT BILIRUBIN(NOT ORDER) 1.5 MG/DL (0.1-0.9); TOTAL BILIRUBIN 2.4 MG/DL (0-1.2)
[2016-07-24 05:05] LABS: INTERNATIONAL NORMAL RATI 1.9 UNITS (-)
== END 2016-07-24 16:44 | disposition hospice, home (50) | DRG 199 ==
LOC: ER 07:00 → 5NO 10:15
PROVIDERS: Nurse Practitioner; Nurse Practitioner Acute Care; Nurse Practitioner Family; Thoracic Surgery (Cardiothoracic Vascular Surgery)
PROC: 0W9B30Z Drainage of Left Pleural Cavity with Drainage Device, Percutaneous Approach (ICD-10-PCS; principal; 2016-07-14 16:45)
PROC: 0W9900Z Drainage of Right Pleural Cavity with Drainage Device, Open Approach (ICD-10-PCS; principal; 2016-07-14 16:45)
DX: S27.0XXA Traumatic pneumothorax, initial encounter (principal); G92 Toxic encephalopathy; L89.151 Pressure ulcer of sacral region, stage 1; S22.41XA Multiple fractures of ribs, right side, initial encounter for closed fracture; I50.22 Chronic systolic (congestive) heart failure; K76.6 Portal hypertension; I85.10 Secondary esophageal varices without bleeding; K74.60 Unspecified cirrhosis of liver; W18.30XA Fall on same level, unspecified, initial encounter; Z91.81 History of falling; Y92.129 Unspecified place in nursing home as the place of occurrence of the external cause; Z90.710 Acquired absence of both cervix and uterus; K21.9 Gastro-esophageal reflux disease without esophagitis; K72.10 Chronic hepatic failure without coma; T40.2X5A Adverse effect of other opioids, initial encounter
CPT/HCPCS: 32557; 70450; 71010; 71020; 71100-RT; 71250; 73030-RT; 74150; 80048; 80076; 82140; 84145; 85014; 85018; 85025; 85610; 85730; 87070; 87205; 92610-GN; 93005; 96374; 97162-GP; 97530-GP; 99285; A9270-GY; C9113; J1170; J2250; J2405; J3010; P9047